=== PATIENT | female | born 1970 | race American Indian/Alaskan Native ===

== ENCOUNTER 2021-07-30 04:45 | Emergency (ER) | payer MEDICARE ==
--- NOTE | 2021-07-30 06:58 | Emergency Department Report ---
ED Back Pain/Injury HPI - General Chief Complaint: Back Pain/Injury Stated Complaint: MID BACK PAIN Time Seen by Provider: 07/30/21 06:22 Source: patient, EMS Limitations: No Limitations - History of Present Illness Initial Comments: Patient presents with back pain. 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 She is been having ongoing back pain since that time. This is in the mid back. The pain does not radiate or migrate. It is worse with any kind of movement. She states that she has to walk "hunched over." There is no chest pain or shortness of breath. She has no numbness tingling the arms or legs. She has had no incontinence of bowel or bladder. There is no fevers or chills. Pain is constant but worse with moveme nt. She has not noticed any alleviating factors. She decided to come here this morning because she was having a hard time moving and functioning. - Related Data Previous Rx's Medication Instructions Recorded Last Taken Type Ibuprofen [Motrin] 600 mg PO Q8H PRN #30 tablet 07/30/21 Unknown Rx Metaxalone [Skelaxin] 800 mg PO TID #10 tablet 07/30/21 Unknown Rx Allergies Allergy/AdvReac Type Severity Reaction Status Date / Time No Known Allergies Allergy Unverified 07/30/21 04:55 ED Review of Systems ROS: Stated complaint: MID BACK PAIN Other details as noted in HPI Comment: All other systems reviewed and negative Constitutional: denies: fever Eyes: denies: eye pain ENT: denies: throat pain Respiratory: denies: cough Cardiovascular: denies: chest pain Endocrine: denies: unexplained weight loss Gastrointestinal: denies: abdominal pain Genitourinary: denies: dysuria Musculoskeletal: as per HPI Skin: denies: rash Neurological: denies: numbness Hematological/Lymphatic: denies: easy bruising ED Past Medical Hx - Past Medical History Hx Hypertension: Yes Hx Diabetes: Yes - Family History Family history: hypertension - Social History Smoking Status: Never Smoker - Medications Home Medications: Home Medications Medication Instructions Recorded Confirmed Last Taken Type Ibuprofen [Motrin] 600 mg PO Q8H PRN #30 tablet 07/30/21 Unknown Rx Metaxalone [Skelaxin] 800 mg PO TID #10 tablet 07/30/21 Unknown Rx ED Physical Exam - General Limitations: No Limitations, Other (Pulse ox is noted and normal.) General appearance: alert, in distress (Uncomfortable), obese - Head Head exam: Present: atraumatic, normocephalic, normal inspection - Eye Eye exam: Present: normal appearance. Absent: scleral icterus - ENT ENT exam: Present: normal exam, normal orophraynx, normal external ear exam - Neck Neck exam: Present: normal inspection. Absent: meningismus - Respiratory Respiratory exam: Present: normal lung sounds bilaterally. Absent: respiratory distress - Cardiovascular Cardiovascular Exam: Present: regular rate, normal rhythm - GI/Abdominal GI/Abdominal exam: Present: soft. Absent: tenderness, pulsatile mass - Extremities Exam Extremities exam: Present: normal capillary refill. Absent: calf tenderness - Back Exam Back exam: Present: muscle spasm (Midthoracic area), paraspinal tenderness (Midthoracic area). Absent: CVA tenderness (R), CVA tenderness (L), vertebral tenderness - Neurological Exam Neurological exam: Present: alert, oriented X3, CN II-XII intact, abnormal gait (Antalgic), reflexes normal, other (Negative straight leg raise). Absent: motor sensory deficit - Psychiatric Psychiatric exam: Present: normal affect, normal mood - Skin Skin exam: Present: warm, dry ED Course - Reevaluation(s) Reevaluation #1: 07/30/21 06:58 Patient was discharged. ED Medical Decision Making - Medical Decision Making Patient presents with mid back strain. There is no direct trauma that would suggest fracture. She has no neurologic symptom or deficit or high risk factors that would suggest cauda equina or cord impingement syndrome. She has no red flags that would suggest epidural abscess. Patient was treated symptomatically and referred for outpatient evaluation. There is no abdominal tenderness that would suggest referred pain from the back. She has no chest pain or shortness of breath. I do not believe this represents an angina equivalent. Critical care attestation.: If time is entered above; I have spent that time in minutes in the direct care of this critically ill patient, excluding procedure time. ED Disposition Clinical Impression: Strain of mid-back Qualifiers: Encounter type: initial encounter Qualified Code(s): S29.012A - Strain of muscle and tendon of back wall of thorax, initial encounter Disposition: HOME / SELF CARE / HOMELESS Is pt being admited?: No Condition: Stable Instructions: Muscle Strain, How to Use Cold Therapy Additional Instructions: Limit lifting. Apply ice for 2 days. Then switch to heat. Do not drive while taking muscle relaxants. Follow-up with your regular doctor for recheck and further management. Drink plenty of water. Lift with your legs. Limit lifting for 2 days to rest your back. Prescriptions: Ibuprofen [Motrin] 600 mg PO Q8H PRN #30 tablet PRN Reason: Pain Metaxalone [Skelaxin] 800 mg PO TID #10 tablet Referrals: PRIMARY CAREMD [Referring] - 3-5 Days MARTÍN GRANGER MD [Staff Physician] - 3-5 Days
[2021-07-30 08:02] VITALS: BP 154/80
== END 2021-07-30 08:01 | disposition home or self-care (01) ==
LOC: ED 04:45
DX: S29.012A Strain of muscle and tendon of back wall of thorax, initial encounter (principal); I10 Essential (primary) hypertension; E11.8 Type 2 diabetes mellitus with unspecified complications; X58.XXXA Exposure to other specified factors, initial encounter; Y93.89 Activity, other specified; Y92.89 Other specified places as the place of occurrence of the external cause; Y99.8 Other external cause status
CPT/HCPCS: 99283

== ENCOUNTER 2022-06-19 02:42 | Emergency (ER) | payer OTHER, MEDICARE ==
[2022-06-19 03:08] VITALS: BP 154/82
[2022-06-19 08:29] LABS: Bacteria,Urine 1+ /HPF (Negative)
[2022-06-19 08:35] LABS: Color,Urine Straw (Yellow); RBC,Urine < 1.0 /HPF (0.0-6.0)
[2022-06-19 09:33] LABS: Hematocrit 38.3 % (30.3-42.9); Hemoglobin 12.5 gm/dl (10.1-14.3); Mean Corpuscular HGB Conc 33 % (30-34); Mean Corpuscular Volume 89 fl (79-97); Platelet Count 337 K/mm3 (140-440); Red Cell Distribution Width 15.7 % (13.2-15.2)
[2022-06-19 09:50] LABS: Alanine Aminotransferase 11 units/L (7-56); Albumin 4.3 g/dL (3.9-5); Blood Urea Nitrogen 6 mg/dL (7-17); Calcium 9.8 mg/dL (8.4-10.2); Hemolysis Index 15
[2022-06-19 09:52] LABS: BUN/Creatinine Ratio 10
--- NOTE | 2022-06-19 10:11 | Emergency Department Report ---
ED Dysuria HPI - HPI Chief Complaint: Pain General Stated Complaint: BODY PAIN Time Seen by Provider: 06/19/22 08:08 Duration: 2 Days Location of Discomfort: Suprapubic Severity: Mild Symptoms: Dysuria: Yes, Frequency: No, Suprapubic Pain: No, Flank Pain: No, Fever: No, Hematuria: No, Abdominal Pain: No, Previous UTI's: No Other History: 52 YO COMES TO ER WITH R SIDE PAIN FOR 2 DAYS. HOME RX. TROPAZINE. DEPAKOTE. LOSARTAN. NORVASC. STATIN ED Review of Systems ROS: Stated complaint: BODY PAIN Other details as noted in HPI Comment: All other systems reviewed and negative ED Past Medical Hx - Past Medical History Previous Medical History?: Yes Hx Hypertension: Yes Hx Diabetes: Yes Additional medical history: HLD. SCHIZO. OVARIAN CYSTS. FIBROIDS - Surgical History Past Surgical History?: No - Family History Family history: no significant - Social History Smoking Status: Never Smoker Substance Use Type: None - Medications Home Medications: Home Medications Medication Instructions Recorded Confirmed Last Taken Type Sulfamethoxazole/Trimethoprim 1 each PO BID #10 tablet 06/19/22 Unknown Rx [Bactrim DS TAB] Dysuria Exam - Exam General: Vital signs noted. No distress. Alert and acting appropriately. Exam: Yes Moist Mucous Membranes, No CVA Tenderness, No Abdominal Tenderness, No Rigidity or Guarding Labs: Lab Results 06/19/22 06/19/22 06/19/22 Range/Units 08:59 08:59 Unknown WBC 6.0 (4.5-11.0) K/mm3 RBC 4.30 (3.65-5.03) M/mm3 Hgb 12.5 (10.1-14.3) gm/dl Hct 38.3 (30.3-42.9) % MCV 89 (79-97) fl MCH 29 (28-32) pg MCHC 33 (30-34) % RDW 15.7 H (13.2-15.2) % Plt Count 337 (140-440) K/mm3 Sodium 140 (137-145) mmol/L Potassium 4.2 (3.6-5.0) mmol/L Chloride 103.5 (98-107) mmol/L Carbon Dioxide 24 (22-30) mmol/L Anion Gap 17 mmol/L BUN 6 L (7-17) mg/dL Creatinine 0.6 (0.6-1.2) mg/dL Estimated GFR > 60 ml/min BUN/Creatinine Ratio 10 % Glucose 91 (65-100) mg/dL Calcium 9.8 (8.4-10.2) mg/dL Total Bilirubin 0.60 (0.1-1.2) mg/dL AST 14 (5-40) units/L ALT 11 (7-56) units/L Alkaline Phosphatase 112 (35-129) units/L Total Protein 7.7 (6.3-8.2) g/dL Albumin 4.3 (3.9-5) g/dL Albumin/Globulin Ratio 1.3 % Lipase 11 L (13-60) units/L Urine Color Straw (Yellow) Urine Turbidity Clear (Clear) Specific [place] (Man) 1.010 (1.003-1.030) Ur Protein (Man) <30 mg dl (Negative) mg/dL Ur Ketones (Man) Negative (Negative) Ur Nitrite (Man) Positive (Negative) Ur Reducing Substances Not Reportable Urine Bilirubin (Man) Negative (Negative) Urine Ictotest Not Reportable Leukocyte Esterase (Man) Negative (Negative) Urine WBC (Auto) 2.0 (0.0-6.0) /HPF Urine RBC (Auto) < 1.0 (0.0-6.0) /HPF U Epithel Cells (Auto) 1.0 (0-13.0) /HPF Urine Bacteria (Auto) 1+ (Negative) /HPF Urine RBC (Manual) Negative (Negative) ED Course Vital Signs 06/19/22 03:06 Temperature 98.6 F Pulse Rate 86 Respiratory 16 Rate Blood Pressure 154/82 [Right] O2 Sat by Pulse 96 Oximetry ED Medical Decision Making - Lab Data Result diagrams: 06/19/22 08:59 06/19/22 08:59 - Medical Decision Making Lab Results 06/19/22 06/19/22 06/19/22 Range/Units 08:59 08:59 Unknown WBC 6.0 (4.5-11.0) K/mm3 RBC 4.30 (3.65-5.03) M/mm3 Hgb 12.5 (10.1-14.3) gm/dl Hct 38.3 (30.3-42.9) % MCV 89 (79-97) fl MCH 29 (28-32) pg MCHC 33 (30-34) % RDW 15.7 H (13.2-15.2) % Plt Count 337 (140-440) K/mm3 Sodium 140 (137-145) mmol/L Potassium 4.2 (3.6-5.0) mmol/L Chloride 103.5 (98-107) mmol/L Carbon Dioxide 24 (22-30) mmol/L Anion Gap 17 mmol/L BUN 6 L (7-17) mg/dL Creatinine 0.6 (0.6-1.2) mg/dL Estimated GFR > 60 ml/min BUN/Creatinine Ratio 10 % Glucose 91 (65-100) mg/dL Calcium 9.8 (8.4-10.2) mg/dL Total Bilirubin 0.60 (0.1-1.2) mg/dL AST 14 (5-40) units/L ALT 11 (7-56) units/L Alkaline Phosphatase 112 (35-129) units/L Total Protein 7.7 (6.3-8.2) g/dL Albumin 4.3 (3.9-5) g/dL Albumin/Globulin Ratio 1.3 % Lipase 11 L (13-60) units/L Urine Color Straw (Yellow) Urine Turbidity Clear (Clear) Specific [place] (Man) 1.010 (1.003-1.030) Ur Protein (Man) <30 mg dl (Negative) mg/dL Ur Ketones (Man) Negative (Negative) Ur Nitrite (Man) Positive (Negative) Ur Reducing Substances Not Reportable Urine Bilirubin (Man) Negative (Negative) Urine Ictotest Not Reportable Leukocyte Esterase (Man) Negative (Negative) Urine WBC (Auto) 2.0 (0.0-6.0) /HPF Urine RBC (Auto) < 1.0 (0.0-6.0) /HPF U Epithel Cells (Auto) 1.0 (0-13.0) /HPF Urine Bacteria (Auto) 1+ (Negative) /HPF Urine RBC (Manual) Negative (Negative) Vital Signs 06/19/22 03:06 Temperature 98.6 F Pulse Rate 86 Respiratory 16 Rate Blood Pressure 154/82 [Right] O2 Sat by Pulse 96 Oximetry LABS NOTED VSS NO FEVER/CHILLS NO CVA TENDERNESS ABD SNT TAKING PO DC HOME WITH DC PLAN OF CARE INCLUDING DIET, MEDS, ACTIVITY AND FOLLOW UP. SHE VERBALIZES UNDERSTANDING OF PLAN OF CARE. - Differential Diagnosis RO UTI/K STONES Critical care attestation.: If time is entered above; I have spent that time in minutes in the direct care of this critically ill patient, excluding procedure time. ED Disposition Clinical Impression: UTI (urinary tract infection) Disposition: 01 HOME / SELF CARE / HOMELESS Is pt being admited?: No Does the pt Need Aspirin: No Condition: Stable Instructions: Urinary Tract Infection, Adult, [id number] Additional Instructions: med as ordered today until gone stay well hydrated follow up with pcp in 1 week referral below Prescriptions: Sulfamethoxazole/Trimethoprim [Bactrim DS TAB] 1 each PO BID #10 tablet Referrals: KENIA LYNCH MD [Primary Care Provider] - 3-5 Days Forms: Work/School Release Form(ED) Time of Disposition: 10:17
[2022-06-19] MEDS ORDERED: LIDOCAINE-MPF (1%) 10 MG/1 ML VIAL 5 ML INFILTRATI ONE (10:16)
== END 2022-06-19 10:54 | disposition home or self-care (01) ==
LOC: ED 02:42
DX: N39.0 Urinary tract infection, site not specified (principal); I10 Essential (primary) hypertension; E11.9 Type 2 diabetes mellitus without complications
CPT/HCPCS: 36415; 80053; 81001; 83690; 85027; 96372; 99283; J0696; J3490